=== PATIENT | female | born 1980 | race Caucasian/White ===

== ENCOUNTER 2017-03-04 10:27 | Emergency (ER) | payer MEDICAID ==
[~2017-03-04] VITALS: Ht 162.6 cm; Wt 68.0 kg
[~2017-03-04 10:27] MED LIST: CALC600T11 PO; FERR240T9 PO; PREN1TAB17 PO
[2017-03-04 10:30] VITALS: Ht 162.6 cm; Wt 68.0 kg
[2017-03-04] MEDS ORDERED: KETOROLAC 30 MG INJ IM STA (11:05)
--- NOTE | 2017-03-04 11:12 | ERD ---
ER Documentation Chief Complaint Date/Time DATE: 03/04/17 TIME: 11:11 Chief Complaint PT presents with Fever, CARNEY, and dizziness X 4 days. HPI Is a 36-year-old female who presents the emergency department today with her he states that 5 days ago she had a lot of burning and pain with urination that had since resolved. States that after that she developed a fever and also has had a headache for the past 4 days. States that she took Tylenol 2 days ago but it did not help with her headaches that she stopped taking it. Denies any vomiting, diarrhea, chest pain or shortness of breath, abdominal pain ROS All systems reviewed and are negative except as per history of present illness. Medications Home Meds Active Scripts Ibuprofen* (Motrin*) 600 Mg Tab, 600 MG PO Q6, #30 TAB Prov:BRITT MILLER PA-C 03/04/17 Cephalexin* (Keflex*) 500 Mg Capsule, 500 MG PO QID for 7 Days, CAP Prov:BRITT MILLER PA-C 03/04/17 Reported Medications Calcium Carbonate* (Calcium Carbonate*) 600 MG Ca Tab, 600 MG PO DAILY, TAB 05/12/14 Ferrous Gluconate (Iron) 1 Tab Tablet, 1 TAB PO DAILY 05/12/14 Vit-Iron Fumarate-FA ( Tablet) 1 Each Tablet, 1 TAB PO DAILY, TAB 05/12/14 Allergies Allergies: Coded Allergies: No Known Allergies (Verified Allergy, Intermediate, 03/04/17) Physical Exam Vitals Vital Signs Date Time Temp Pulse Resp B/P Pulse Ox O2 Delivery O2 Flow Rate FiO2 03/04/17 10:30 99.9 97 18 114/76 98 Physical Exam Const: No acute distress Head: Atraumatic. Tenderness to palpation frontal bone Eyes: Normal Conjunctiva. PERRLA. EOM intact ENT: Normal External Ears, Nose and Mouth. Neck: Full range of motion..~ No meningismus. Resp: Clear to auscultation bilaterally Cardio: Regular rate and rhythm, no murmurs Abd: Soft, non tender, non distended. Normal bowel sounds Skin: No petechiae or rashes Back: No midline or flank tenderness. No CVA tenderness. Ext: No cyanosis, or edema Neur: Awake and alert Psych: Normal Mood and Affect Results 24 hrs Laboratory Tests Test 03/04/17 11:26 Bedside Urine pH (LAB) 6.0 Bedside Urine Protein (LAB) 3+ Bedside Urine Glucose (UA) Negative Bedside Urine Ketones (LAB) Trace Bedside Urine Blood 3+ Bedside Urine Nitrite (LAB) Positive Bedside Urine Leukocyte Esterase (L 2+ Current Medications Medications (Trade) Dose Ordered Sig/Ariel Route PRN Reason Start Time Stop Time Status Last Admin Dose Admin Ketorolac Tromethamine (Toradol) 30 mg ONCE STAT IM 03/04/17 11:05 03/04/17 11:07 DC 03/04/17 11:27 Procedures/MDM This a 36-year-old female who presents to the emergency department today complaining of dysuria 5 days ago that has since resolved and headache and dizziness for the past 4 days and reports of fever. Patient is afebrile and otherwise well-appearing. She reports no abdominal pain or dysuria at this time however given patient's complaints that she had dysuria did obtain a UA and urine test UA shows 2+ leukocyte esterase, positive nitrites and 3+ blood. Urine test is negative. Patient has no focal neurologic deficits and no gait ataxia and I do not feel that she requires a head CT scan at this time. Low suspicion for acute hemorrhage, mass, abscess. Patient was given a Toradol injection here in the emergency department. She describes a frontal headache and likely tension type headache. Patient's headache and dizziness and dysuria likely result of urinary tract infection. Patient was given a prescription for Keflex. She is afebrile and otherwise well-appearing. She has no CVA tenderness have low suspicion for pyelonephritis. Patient was also given a prescription for Motrin for her headache. She states that her headache had completely resolved with a Toradol injection. At this time the patient is stable for discharge and outpatient management. Patient should follow up with their PCP in the next 1-2 days. They may return to the emergency department sooner for any persistent or worsening of symptoms. Patient understood and agreed with the plan. Departure Diagnosis: Primary Impression: UTI (urinary tract infection) Urinary tract infection type: site unspecified Hematuria presence: with hematuria Qualified Code: N39.0 - Urinary tract infection with hematuria, site unspecified Additional Impression: Headache Headache type: unspecified Headache chronicity pattern: unspecified pattern Intractability: not intractable Qualified Code: R51 - Nonintractable headache, unspecified chronicity pattern, unspecified headache type Condition: BRITT Lucia PA-C Mar 04, 2017 11:12
[2017-03-04 11:22] LABS: URINE BLOOD (Dip) POC 3+ (NEGATIVE)
[2017-03-04] MEDS ORDERED: IBUP-1542 PO (11:48)
[2017-03-04] MEDS ORDERED: CEPH-443 PO (11:48)
== END 2017-03-04 12:08 | disposition home or self-care (01) ==
LOC: FTE 10:27
DX: N39.0 Urinary tract infection, site not specified (principal); R51 Headache
CPT/HCPCS: 81003; J1885; 96372